=== PATIENT | female | born 1955 | race Caucasian/White ===

== ENCOUNTER 2017-10-11 17:09 | Emergency (ER) | payer BC, MEDICAID ==
[2017-10-11] MEDS ORDERED: Ondansetron 4 MG Tab.DIS PO ONE (18:01)
[2017-10-11] MEDS ORDERED: Aluminum Hydroxide/Magnesium Hydroxide/Simethicone Susp 30 ML Cup PO ONE (18:01)
--- NOTE | 2017-10-11 18:02 | EDM.PDOC ---
ED HPI GENERAL MEDICAL PROBLEM - General Chief Complaint: Abdominal Pain Stated Complaint: ILLNESS Time Seen by Provider: 10/11/17 18:00 Source of Information: Reports: Patient History Limitations: Reports: No Limitations - History of Present Illness INITIAL COMMENTS - FREE TEXT/NARRATIVE: 62-year-old female with biliary stents placed in March 2017 has had 2-3 weeks of increase abdominal pain and discomfort. No fevers or chills but is having increased nausea and heartburn. Last night she had a "really bad night" so felt she should have it checked out. She was due to have the stents removed in 6 months, it is been 7. Bowels are moving normally. She has chronic COPD, that is unchanged,no increased shortness of breath or cough. Appetite is down. Her main concern is the pain and discomfort with increased nausea and reflux. Onset: Unknown/Unsure Duration: Week(s): (Symptoms have been several weeks) Location: Reports: Abdomen Severity: Moderate Associated Symptoms: Reports: Loss of Appetite, Malaise, Nausea/Vomiting ( Persistent nausea but no vomiting). 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 Denies: Fever, Chills HEENT: Reports: No Symptoms Respiratory: Reports: Shortness of Breath (Chronic stable shortness of breath from COPD) Cardiovascular: Reports: Chest Pain (Substernal, reflux in nature) GI/Abdominal: Reports: Abdominal Pain, Decreased Appetite, Nausea. Denies: Black Stool, Difficulty Swallowing, Hematochezia, Vomiting Musculoskeletal: Reports: No Symptoms Skin: Reports: Other (Is concerned there may be some jaundice forming) Neurological: Denies: Headache ED EXAM, GI/ABD - Physical Exam Exam: See Below Exam Limited By: No Limitations General Appearance: Alert, No Apparent Distress (Looks uncomfortable but not distressed) Head: Atraumatic Neck: Non-Tender Respiratory/Chest: No Respiratory Distress, Lungs Clear, Decreased Breath Sounds (Diffuse decreased breath sounds) Cardiovascular: Regular Rate, Rhythm, Tachycardia GI/Abdominal Exam: Tender (Very tender to palpation across the upper abdomen, especially in the right upper quadrant with guarding present as well as moderate rebound tenderness. Bowel sounds are hypoactive but present.) Extremities: No: Pedal Edema Neurological: Alert, Oriented, No Motor/Sensory Deficits Skin Exam: Warm, Dry, Jaundice (Mild jaundice appears to be present) Course - Vital Signs Last Recorded V/S: Last Vital Signs Temp 96.3 F 10/11/17 17:35 Pulse 103 H 10/11/17 18:43 Resp 18 10/11/17 17:35 BP 109/68 10/11/17 18:43 Pulse Ox 89 L 10/11/17 18:43 - Orders/Labs/Meds Labs: Laboratory Tests 10/11/17 10/11/17 Range/Units 18:10 18:10 WBC 46.5 H* (4.5-11.0) K/uL RBC 4.21 (3.30-5.50) M/uL Hgb 12.6 (12.0-15.0) g/dL Hct 38.0 (36.0-48.0) % MCV 90 (80-98) fL MCH 30 (27-31) pg MCHC 33 (32-36) % Plt Count 496 H (150-400) K/uL Add Manual Diff Yes Neutrophils % (Manual) 93 H (36-66) % Band Neutrophils % 5 (5-11) % Lymphocytes % (Manual) 2 L (24-44) % Polychromasia Sodium 131 L (140-148) mmol/L Potassium 4.2 (3.6-5.2) mmol/L Chloride 91 L (100-108) mmol/L Carbon Dioxide 31 (21-32) mmol/L Anion Gap 13.2 (5.0-14.0) mmol/L BUN 24 H D (7-18) mg/dL Creatinine 1.1 H D (0.6-1.0) mg/dL Est Cr Clr Drug Dosing 46.86 mL/min Estimated GFR (MDRD) 50 L (>60) Glucose 187 H (74-106) mg/dL Calcium 10.5 H (8.5-10.1) mg/dL Total Bilirubin 2.8 H D (0.2-1.0) mg/dL AST 50 H D (15-37) U/L ALT 75 D (12-78) U/L Alkaline Phosphatase 649 H (46-116) U/L Total Protein 7.0 (6.4-8.2) g/dL Albumin 1.7 L (3.4-5.0) g/dL Globulin 5.3 H (2.3-3.5) g/dL Albumin/Globulin Ratio 0.3 L (1.2-2.2) Amylase 10 L (25-115) U/L Lipase 38 L (73-393) U/L Meds: Medications Discontinued Medications Generic Name Dose Route Start Last Admin Trade Name Freq PRN Reason Stop Dose Admin Al Hydroxide/Mg Hydroxide 30 ml 10/11/17 18:01 10/11/17 18:06 Mag-Al Plus PO 10/11/17 18:02 30 ml ONETIME ONE Administration Ondansetron HCl 4 mg 10/11/17 18:01 10/11/17 18:06 Zofran Odt PO 10/11/17 18:02 4 mg ONETIME ONE Administration - Re-Assessments/Exams Free Text/Narrative Re-Assessment/Exam: 10/11/17 18:19 Patient was given 4 mg of sublingual Zofran and 30 mL of Maalox. CBC, CMP, amylase and lipase were obtained. 10/11/17 19:15 Zofran helped her nausea, the Maalox did not help her pain. White count return 46,000, bilirubin 2.8 and alkaline phosphatase 649. Amylase and lipase were normal. In review of her history with her primary provider, I was informed she has bile duct cancer and other than stents refused any other treatment. She is willing to go to [place] and have the stents replaced and have further evaluation. Dr. Iyer, hospitalist at [facility] kindly accepted the patient for transfer. Departure - Departure Time of Disposition: 19:49 Disposition: DC/Tfer to Other 70 Condition: Fair Clinical Impression: History of bile duct cancer, Acquired hyperbilirubinemia Abdominal pain Qualifiers: Abdominal location: upper abdomen, unspecified Qualified Code(s): R10.10 - Upper abdominal pain, unspecified - Discharge Information Instructions: Abdominal Pain, Adult, [id number] Referrals: Luis Manuel Andrea Sr, MD [Primary Care Provider] - Forms: ED Department Discharge Care Plan Goals: Patient needs a gastroenterology and oncology evaluation. She was accepted in [place] by the hospitalist service at [facility]. Patient is stable and insisted on driving herself which was allowed. She will be a direct admit when she arrives to [place].
[2017-10-11 18:44] VITALS: BP 109/68
== END 2017-10-11 19:49 | disposition other institution (70) ==
LOC: JP.ED 17:09
DX: R10.9 Unspecified abdominal pain (principal); E80.6 Other disorders of bilirubin metabolism; C24.0 Malignant neoplasm of extrahepatic bile duct; J44.9 Chronic obstructive pulmonary disease, unspecified; F17.210 Nicotine dependence, cigarettes, uncomplicated; Z79.899 Other long term (current) drug therapy; Z96.89 Presence of other specified functional implants
CPT/HCPCS: 36415; 80053; 82150; 83690; 85025; 99285; A9270

== ENCOUNTER 2017-10-14 20:22 | Inpatient (IN) | payer MEDICAID ==
[2017-10-14] MEDS ORDERED: HYDROmorphone 0.5 MG/0.5 ML Syringe IM ONE (21:19)
[2017-10-14] MEDS ORDERED: HYDROmorphone 1 MG/ML Syringe IM PRN (21:29)
--- NOTE | 2017-10-14 21:30 | EDM.PDOC ---
ED HPI GENERAL MEDICAL PROBLEM - General Chief Complaint: General Stated Complaint: ILLNESS Time Seen by Provider: 10/14/17 20:55 Source of Information: Reports: Patient, Other (pt was very obtunded and could give very little history. She was sent to [place] for replacement of her stent. She refused to go by ambulance and the gfamily came to take her and found her in a very obtunded state and she was uncomfortable. Pt did not want us to touch her or do anything. 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 She did not even want a bp taken and she did not like to be touched. ) HEENT: Reports: No Symptoms Respiratory: Reports: Other (labored breathing) GI/Abdominal: Reports: Abdominal Pain ED EXAM, GENERAL - Physical Exam Exam: See Below Free Text/Narrative:: Pt arrived with biliary Ca--looking terminal. Dr Andrea was in the building so he came and evaluated for comfort and terminal care The pt did not want to be examined and did not want her bp checked and did not want aniv. She just wanted to be comfortable. She did appear to be jaundiced. Course - Vital Signs Last Recorded V/S: Last Vital Signs Temp 35.2 C 10/14/17 20:55 Pulse Resp BP Pulse Ox - Orders/Labs/Meds Orders: Active Orders 24 hr Category Date Time Status CBC WITH AUTO DIFF [HEME] Urgent Lab 10/14/17 21:04 Stop Req COMPREHENSIVE METABOLIC PN,CMP [CHEM] Urgent Lab 10/14/17 21:04 Stop Req INR,PT,PROTHROMBIN TIME [COAG] Stat Lab 10/14/17 21:05 Stop Req PTT,PARTIAL THROMBOPLSTIN TIME [COAG] Stat Lab 10/14/17 21:05 Stop Req Meds: Medications Discontinued Medications Generic Name Dose Route Start Last Admin Trade Name Freq PRN Reason Stop Dose Admin Hydromorphone HCl 0.5 mg 10/14/17 21:19 Dilaudid IM 10/14/17 21:20 ONETIME ONE Departure - Departure Time of Disposition: 21:31 Disposition: Admitted As Inpatient 66 Condition: Fair Clinical Impression: Localized cancer of common bile duct - Discharge Information Referrals: PCP,None [Primary Care Provider] - Care Plan Goals: admit for terminal care. - My Orders Last 24 Hours: My Active Orders 10/14/17 21:04 CBC WITH AUTO DIFF [HEME] Urgent COMPREHENSIVE METABOLIC PN,CMP [CHEM] Urgent 10/14/17 21:05 INR,PT,PROTHROMBIN TIME [COAG] Stat PTT,PARTIAL THROMBOPLSTIN TIME [COAG] Stat - Assessment/Plan Last 24 Hours: My Active Orders 10/14/17 21:04 CBC WITH AUTO DIFF [HEME] Urgent COMPREHENSIVE METABOLIC PN,CMP [CHEM] Urgent 10/14/17 21:05 INR,PT,PROTHROMBIN TIME [COAG] Stat PTT,PARTIAL THROMBOPLSTIN TIME [COAG] Stat
--- NOTE | 2017-10-14 21:40 | PCM.HP ---
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 She was not answering her telephone so the sister came from [place] and brought her to the ER. She is unable to respond verbally. Tried to get blood and was unable to draw any blood. The sister wants to keep her comfortable. She was given 3 months to live in March 2017. 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 - Infectious Disease History Infectious Disease History: Reports: Chicken Pox, Measles, Mumps - Past Surgical History GI Surgical History: Reports: Other (See Below) Other GI Surgeries/Procedures: biliary duct stents Social & Family History - Tobacco Use Smoking Status *Q: Current Every Day Smoker Years of Tobacco use: 45 Packs/Tins Daily: 1 - Caffeine Use Caffeine Use: Reports: Coffee, Tea - Recreational Drug Use Recreational Drug Use: No H&P Review of Systems - Review of Systems: Review Of Systems: See Below Free Text/Narrative: Unable to get any ROS Exam - Exam Exam: See Below - Vital Signs Vital Signs: Last Vital Signs Temp 95.4 F 10/14/17 20:55 Pulse Resp BP Pulse Ox - Exam General: Lethargic Lungs: Clear to Auscultation, Normal Respiratory Effort Cardiovascular: Irregular Rhythm GI/Abdominal Exam: Soft Peripheral Pulses: 1+: Radial (L), Radial (R) Skin: Dry, Cool Physical Exam Comments:: zzz *Q Meaningful Use (ADM) - VTE *Q VTE Criteria *Q: - Stroke *Q Stroke Criteria *Q: - AMI *Q AMI Criteria *Q: Problem List Initiated/Reviewed/Updated: Yes Orders Last 24hrs: Active Orders 24 hr Category Date Time Status Patient Status [ADT] Routine ADT 10/14/17 21:25 Ordered Oxygen Therapy [RC] PRN Care 10/14/17 21:25 Ordered VTE/DVT Education [RC] Per Unit Routine Care 10/14/17 21:25 Ordered Vital Signs [RC] Q4H Care 10/14/17 21:25 Ordered Nothing per Oral Now Diet [DIET] Diet 10/15/17 Breakfast Ordered Resuscitation Status Routine Resus Stat 10/14/17 21:24 Ordered Assessment/Plan Comment:: Assessment/Plan: Cholangiocarcinoma with obstructive Jaundice and Cholelithiasis. # 2. COPD #3. Cholelithiasis She is terminal and the sister wants comfort cares only and I feel this a appropriate presently. Will give MS and Ativan as needed for pain and comfort. Unable to get a IV line.
[2017-10-14 21:44] VITALS: BP 140/113
[2017-10-14] MEDS ORDERED: LORazepam ORAL Concentrate 1MG/0.5ML U/D PO PRN (22:21)
[2017-10-14] MEDS ORDERED: Morphine 10 MG/0.5 ML Oral Syringe PO PRN (22:23)
--- NOTE | 2017-10-15 11:19 | PCM.DCSUM1 ---
Discharge Summary - Hospital Course Brief History: Sophia was admitted with a history of Cholangiocarcinoma with obstructive Jaundice and Cholelithiasis. She was unresponsive upon admission and dehydrated. Sisiter came from [place] and brought her to the ER by EMS. She had terminal Dx of sirvival of 3-6 months from March 2017 - Discharge Data Discharge Date: 10/15/17 Discharge Disposition: 20 Condition: Poor - Patient Summary/Data Hospital Course: She was admitted for terminal care and at 4:25 AM - Discharge Plan Home Medications: Home Meds Albuterol [Ventolin HFA] 1 puff INH Q4H PRN 10/11/17 [History] Tiotropium [Spiriva] 18 mcg INH DAILY 10/11/17 [History] Forms: ED Department Discharge Referrals: PCP,None [Primary Care Provider] - - Patient Data Vitals - Most Recent: Last Vital Signs Temp 95.4 F 10/14/17 21:41 Pulse 75 10/14/17 21:41 Resp 23 H 10/14/17 21:41 BP 140/113 H 10/14/17 21:41 Pulse Ox 86 L 10/14/17 21:41 Weight - Most Recent: 127 lb Med Orders - Current: Current Medications Discontinued Medications Hydromorphone HCl (Dilaudid) 0.5 mg IM ONETIME ONE Stop: 10/14/17 21:20 Last Admin: 10/14/17 21:26 Dose: 0.5 mg Hydromorphone HCl (Dilaudid) 1 mg IM Q1H PRN PRN Reason: Agitation Lorazepam (Ativan Oral Concentrate 1mg/0.5 Ml U/D) 0.5 - 1 mg PO Q4H PRN PRN Reason: Agitation Morphine Sulfate (Morphine 10 Mg/0.5 Ml Oral Syringe) 5 - 10 mg PO Q4H PRN PRN Reason: Pain *Q Meaningful Use (DIS) - VTE *Q VTE Criteria *Q: - Stroke *Q Stroke Criteria *Q: - AMI *Q AMI Criteria *Q:
== END 2017-10-15 07:00 | disposition expired | DRG 435 ==
LOC: JP.ED 20:22 → JP.MS 21:24
PROVIDERS: ADMIT Internal Medicine; ATTEND Internal Medicine
DX: C22.1 Intrahepatic bile duct carcinoma (principal); K83.1 Obstruction of bile duct; C78.89 Secondary malignant neoplasm of other digestive organs; J44.9 Chronic obstructive pulmonary disease, unspecified; Z66 Do not resuscitate; Z51.5 Encounter for palliative care; H54.7 Unspecified visual loss; F17.210 Nicotine dependence, cigarettes, uncomplicated
CPT/HCPCS: 99285; J1170